=== PATIENT | female | born 1975 | race Caucasian/White ===

== ENCOUNTER 2023-03-12 14:40 | Inpatient (IN) | payer BC ==
--- NOTE | 2023-03-12 15:16 | ED ---
General Adult HPI - General Chief complaint: Recheck/Abnormal Lab/Rx Stated complaint: abn labs Time Seen by Provider: 03/12/23 14:45 Source: patient, RN notes reviewed, old records reviewed Mode of arrival: EMS Limitations: no limitations - History of Present Illness Initial comments: This is a 47-year-old female has a long-standing history of hypokalemia. Patient states she takes potassium on a daily basis but went into the hospital because her potassium was 1.4. Patient states she's been 20 hours of the hospital and they were given oral and IV potassium but they could not get the potassium to stay elevated and they remained in the twos so they sent her to our hospital to be evaluated and see Dr. Godwin who she sees. Patient denies any palpitations. Patient denies any joint patientdenies any chest pain patient denies difficulty breathing. Patient is any fever chills or cough per patient as any kidney history. Also patient is not taking any medications besides potassium - Related Data Allergies Allergy/AdvReac Type Severity Reaction Status Date / Time No Known Allergies Allergy Verified 03/12/23 14:57 Review of Systems ROS Statement: Those systems with pertinent positive or pertinent negative responses have been documented in the HPI. ROS Other: All systems not noted in ROS Statement are negative. Past Medical History Additional Past Medical History / Comment(s): helolytic anemia, low k+ History of Any Multi-Drug Resistant Organisms: None Reported Additional Past Surgical History / Comment(s): D&C, gallbladder, ablasion Past Psychological History: Unable to Obtain Smoking Status: Never smoker Past Alcohol Use History: Occasional Past Drug Use History: None Reported General Exam - General Exam Comments Initial Comments: GENERAL: Patient is well-developed and well-nourished. Patient is nontoxic and well- hydrated and is in no acute distress. ENT: Neck is soft and supple. No significant lymphadenopathy is noted. Oropharynx is clear. Moist mucous membranes. Neck has full range of motion without eliciting any pain. EYES: The sclera were anicteric and conjunctiva were pink and moist. Extraocular movements were intact and pupils were equal round and reactive to light. Eyelids were unremarkable. PULMONARY: Unlabored respirations. Good breath sounds bilaterally. No audible rales rhonchi or wheezing was noted. CARDIOVASCULAR: There is a regular rate and rhythm without any murmurs gallops or rubs. ABDOMEN: Soft and nontender with normal bowel sounds. No palpable organomegaly was noted. There is no palpable pulsatile mass. SKIN: Skin is clear with no lesions or rashes and otherwise unremarkable. NEUROLOGIC: Patient is alert and oriented x3. Cranial nerves II through XII are grossly intact. Motor and sensory are also intact. Normal speech, volume and content. Symmetrical smile. MUSCULOSKELETAL: Normal extremities with adequate strength and full range of motion. No lower extremity swelling or edema. No calf tenderness. LYMPHATICS: No significant lymphadenopathy is noted PSYCHIATRIC: Normal psychiatric evaluation. Limitations: no limitations Course Vital Signs 03/12/23 14:42 Temperature 98.6 F Pulse Rate 54 L Respiratory 18 Rate Blood Pressure 104/64 O2 Sat by Pulse 100 Oximetry Medical Decision Making - Medical Decision Making EKG was interpreted by myself. EKG shows a sinus bradycardia 55 bpm RI interval is 203 QRSs are 110 QT interval is 489 QTC is 477. Patient's EKG shows no ST segment elevation or depression. Was pt. sent in by a medical professional or institution (, PA, SENIOR NURSE MANAGER, urgent care, hospital, or retirement...) When possible be specific @ -Patient was sent in from another hospital. Hospital was [facility] Did you speak to anyone other than the patient for history (EMS, parent, family, police, friend...)? What history was obtained from this source @ -No Did you review nursing and triage notes (agree or disagree)? Why? @ -I reviewed and agree with nursing and triage notes Were old charts reviewed (outside hosp., previous admission, EMS record, old EKG, old radiological studies, urgent care reports/EKG's, retirement records)? Report findings @ -I reviewed all charts and lab work that was sent with the patient from the other facility Differential Diagnosis (chest pain, altered mental status, abdominal pain women, abdominal pain men, vaginal bleeding, weakness, fever, dyspnea, syncope, headache, dizziness, GI bleed, back pain, seizure, CVA, palpatations, mental health, musculoskeletal)? @ -not applicable EKG interpreted by me (3pts min.). @ -As above X-rays interpreted by me (1pt min.). @ -None done CT interpreted by me (1pt min.). @ -None done U/S interpreted by me (1pt. min.). @ -None done What testing was considered but not performed or refused? (CT, X-rays, U/S, labs)? Why? @ -None What meds were considered but not given or refused? Why? @ -None Did you discuss the management of the patient with other professionals (professionals i.e. , PA, SENIOR NURSE MANAGER, lab, RT, psych nurse, high school social science teacher, optics technical officer, teacher, morals squad police officer, porter sample case)? Give summary @ -No Was smoking cessation discussed for >3mins.? @ -No Was critical care preformed (if so, how long)? @ -No Were there social determinants of health that impacted care today? How? (Home lessness, low income, unemployed, alcoholism, drug addiction, transportation, low edu. Level, literacy, decrease access to med. care, senior care, rehab)? @ -No Was there de-escalation of care discussed even if they declined (Discuss DNR or withdrawal of care, Hospice)? DNR status @ -No What co-morbidities impacted this encounter? (DM, HTN, Smoking, COPD, CAD, Cancer, CVA, ARF, Chemo, Hep., AIDS, mental health diagnosis, sleep apnea, morbid obesity)? @ -None Was patient admitted / discharged? Hospital course, mention meds given and route, prescriptions, significant lab abnormalities, going to OR and other pertinent info. @ -Had blood redrawn here at our facility I spoke with Dr. Barillas he agreed to admit the patient admitted the patient wrote admitting orders Undiagnosed new problem with uncertain prognosis? @ -No Drug Therapy requiring intensive monitoring for toxicity (Heparin, Nitro, Insulin, Cardizem)? @ -No Were any procedures done? @ -No Diagnosis/symptom? @ -Hypokalemia Acute, or Chronic, or Acute on Chronic? @ -Acute on chronic Uncomplicated (without systemic symptoms) or Complicated (systemic symptoms)? @ -Complicated Side effects of treatment? @ -No Exacerbation, Progression, or Severe Exacerbation? @ -No Poses a threat to life or bodily function? How? (Chest pain, [place], [place], pneumonia, PE, COPD, DKA, ARF, appy, cholecystitis, CVA, Diverticulitis, Homicidal, Suicidal, threat to staff... and all critical care pts) @ -No Disposition Clinical Impression: Hypokalemia Disposition: ADMITTED IP TO THIS HOSP Referrals: Maximilian Mcleod MD [Primary Care Provider] - 1-2 days Time of Disposition: 15:16
[2023-03-12] MEDS ORDERED: Potassium Replacement Protocol 1 EACH MISC MISCELLANE PRN (15:17)
[2023-03-12] MEDS ORDERED: POTASSIUM CHLORIDE ER 20 MEQ TAB.ER PO ONE (15:17)
[2023-03-12] MEDS: POTASSIUM CHLORIDE 10 MEQ in WATER FOR INJECTION 1 100ML.BAG IVPB SCH ×2 (15:54→16:52)
[2023-03-12 16:04] LABS: Basophils % (A) 0 %; Eosinophils # (A) 0.1 k/uL (0-0.7); Eosinophils % (A) 2 %; HCT 38.7 % (34.0-46.0); HGB 13.3 gm/dL (11.4-16.0); Lymphocytes # (A) 1.8 k/uL (1.0-4.8); Lymphocytes % (A) 38 %; MCH 31.8 pg (25.0-35.0); MCHC 34.3 g/dL (31.0-37.0); MCV 92.7 fL (80.0-100.0); Mean Platelet Volume 7.1; Monocytes # (A) 0.2 k/uL (0-1.0); Monocytes % (A) 4 %; Neutrophils # (A) 2.6 k/uL (1.3-7.7); Neutrophils % (A) 53 %; Platelet Count 206 k/uL (150-450); RBC 4.18 m/uL (3.80-5.40); RDW 14.2 % (11.5-15.5); WBC 4.8 k/uL (3.8-10.6)
[2023-03-12 16:18] LABS: ALT 15 U/L (4-34); AST 21 U/L (14-36); African American GFR (CKD) 75 (>60 ml/min/1.73 sqM); Albumin 2.9 g/dL (3.5-5.0); Alkaline Phosphatase 46 U/L (38-126); Anion Gap 6 mmol/L; Blood Urea Nitrogen 17 mg/dL (7-17); Calcium 6.9 mg/dL (8.4-10.2); Carbon Dioxide 25 mmol/L (22-30); Chloride 107 mmol/L (98-107); Glucose 79 mg/dL (74-99); Non-African American GFR(CKD) 65 (>60 ml/min/1.73 sqM); Sodium 138 mmol/L (137-145); Total Bilirubin 0.6 mg/dL (0.2-1.3)
[2023-03-12 16:22] LABS: Potassium 1.9 mmol/L (3.5-5.1)
[2023-03-12] MEDS: ENOXAPARIN 40 MG/0.4 ML SYRINGE SQ SCH (17:35)
[2023-03-12] MEDS: POTASSIUM CHLORIDE ER 20 MEQ TAB.ER PO SCH ×3 (18:10→22:02)
--- NOTE | 2023-03-12 18:49 | P.HPIM ---
History of Present Illness H&P Date: 03/12/23 Chief Complaint: Low potassium This is a pleasant 47-year-old patient follows Dr. Mcleod. 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 No cause was determined. This has been in remission. But she follows up biannually. Patient also developed potassium for many years. Has extensive workup done in the past. No cause was found. Patient had an appointment to see Dr. Godwin yesterday. They did she was called at home that her potassium was 1.4. She went on to [place]. Recheck potassium was 2.0. Patient is given more potassium and send him to the ER. Patient started IV potassium and ear. Also on oral potassium. Denies any palpitation chest pain muscle weakness. at the bedside. She does not follow with nephrology currently. Has done so in the past. Review of systems: GEN.: Tired EYES: None HEENT: None NECK: None RESPIRATORY: None CARDIOVASCULAR: None GASTROINTESTINAL: Chronic intermittent diarrhea. Averages 1-3 BMs a day. GENITOURINARY: None MUSCULOSKELETAL: None LYMPHATICS: None HEMATOLOGICAL: None PSYCHIATRY: None NEUROLOGICAL: None Past medical history to include: Hemolytic anemia, cause unknown. Persistent hypokalemia. Social history: No smoking. Alcohol occasionally. . Does special ed Physical examination: VITAL SIGNS: 98.6, 54, 18, 104/64, 100% room air GENERAL: BMI 20.8, declining but awake a bit tired. EYES: Pupils equal. Conjunctiva normal. HEENT: External appearance of nose and ears normal, oral cavity grossly normal. NECK: JVD not raised; masses not palpable. HEART: First and second heart sounds are normal; no edema. LUNGS: Respiratory rate normal; clear to auscultation. ABDOMEN: Soft, nontender, liver spleen not palpable, no masses palpable. PSYCH: Alert and oriented x3; mood and affect normal. MUSCULOSKELETAL:No Clubbing/cyanosis;muscles-grossly intact NEUROLOGICAL: Cranial nerves grossly intact; no facial asymmetry, power and sensation grossly intact. LYMPHATICS: No lymph nodes palpable in the axilla and neck INVESTIGATIONS, reviewed in the clinical context: White count 4.18 globin 13.3 platelets 206 sodium 138 potassium 1.9 creatinine 1.04 magnesia 2.0. Albumin 2.9 EKG tracing personally reviewed by ri-heart rate 55. Prolonged QT. Assessment plan: -Severe persistent hypokalemia, acute on chronic. Patient has extensive workup in the past. Cause unknown. Replace potassium aggressively. -Hypoalbuminemia. Cause unknown. -Prolonged QT interval likely from hypokalemia. Telemetry Discussed with patient. We will consult nephrology that patient can follow-up with the same. Potassium being replaced tonight. Check again in the morning. Discussed with patient has been out of the bedside. Past Medical History Additional Past Medical History / Comment(s): helolytic anemia, low k+ History of Any Multi-Drug Resistant Organisms: None Reported Additional Past Surgical History / Comment(s): D&C, gallbladder, ablasion Past Psychological History: Unable to Obtain Smoking Status: Never smoker Past Alcohol Use History: Occasional Past Drug Use History: None Reported Medications and Allergies Home Medications Medication Instructions Recorded Confirmed Type Potassium(Otc) 1 tab PO DAILY 03/12/23 03/12/23 History Allergies Allergy/AdvReac Type Severity Reaction Status Date / Time No Known Allergies Allergy Verified 03/12/23 16:00 Physical Exam Vitals: Vital Signs Temp Pulse Resp BP Pulse Ox 03/12/23 14:42 98.6 F 54 L 18 104/64 100 Intake and Output 03/12/23 03/12/23 03/12/23 06:59 14:59 22:59 Other: Weight 58.513 kg Results CBC & Chem 7: 03/12/23 15:45 03/12/23 15:45 Labs: Abnormal Lab Results - Last 24 Hours (Table) 03/12/23 Range/Units 15:45 Potassium 1.9 L* (3.5-5.1) mmol/L Calcium 6.9 L (8.4-10.2) mg/dL Total Protein 5.0 L (6.3-8.2) g/dL Albumin 2.9 L (3.5-5.0) g/dL
[2023-03-12] MEDS ORDERED: ACETAMINOPHEN TAB 325 MG TAB PO PRN (19:00)
[2023-03-12] MEDS: MAGNESIUM OXIDE 400 MG TAB PO SCH (20:29)
[2023-03-13 08:44] VITALS: BP 94/57; PULSE 81; RESP 18; TEMP 98.1
[2023-03-13] MEDS: ENOXAPARIN 40 MG/0.4 ML SYRINGE SQ SCH (08:48)
[2023-03-13] MEDS: MAGNESIUM OXIDE 400 MG TAB PO SCH (08:49)
[2023-03-13] MEDS ORDERED: POTASSIUM CHLORIDE ER 20 MEQ TAB.ER PO SCH (09:00)
--- NOTE | 2023-03-13 11:21 | P.NPCON ---
History of Present Illness - Reason for Consult hypokalemia - History of Present Illness Patient is a 47-year-old female with history of chronic hypokalemia for about 17 years. Patient also has underlying history of hemolytic anemia for which she has had treatment with Rituxan many years ago. Patient states that her serum potassium is usually in the mid 2 range. She was seen at the iv therapy nurse's office and serum potassium was 1.7 therefore patient was advised to go to the hospital. She does have complaints of weakness and some muscle cramps. Patient reports chronic diarrhea on and off for many years with negative colonoscopies previously. She has been tested for underlying autoimmune etiologies. Workup has been negative per patient. The diarrhea does get worse with increasing stress. Patient denies use of any diuretics No history of intake of excessive amounts of licorice No history of hypertension. Blood pressure actually runs low. 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 She is quite active. Patient states that she takes extra potassium tablets if she is feeling weak but does not regularly get her blood checked. No history of EtOH abuse Review of Systems As per HPI Past Medical History Additional Past Medical History / Comment(s): helolytic anemia, low k+ History of Any Multi-Drug Resistant Organisms: None Reported Additional Past Surgical History / Comment(s): D&C, gallbladder, ablasion Past Psychological History: Unable to Obtain Smoking Status: Never smoker Past Alcohol Use History: Occasional Past Drug Use History: None Reported Medications and Allergies Home Medications Medication Instructions Recorded Confirmed Type Potassium(Otc) 1 tab PO DAILY 03/12/23 03/12/23 History Allergies Allergy/AdvReac Type Severity Reaction Status Date / Time No Known Allergies Allergy Verified 03/12/23 16:00 Physical Exam Vitals: Vital Signs Temp Pulse Pulse Resp BP BP Pulse Ox 03/13/23 08:00 98.1 F 81 18 94/57 99 03/13/23 07:56 51 L 03/13/23 04:00 98.2 F 51 L 16 93/52 99 03/13/23 02:00 68 14 03/13/23 00:00 68 14 95/54 96 03/12/23 20:00 97.4 F L 58 L 16 91/54 100 03/12/23 17:30 97.9 F 52 L 14 99/66 100 03/12/23 17:00 58 L 16 101/61 98 03/12/23 14:42 98.6 F 54 L 18 104/64 100 Intake and Output 03/12/23 03/13/23 03/13/23 22:59 06:59 14:59 Intake Total 540 540 Balance 540 540 Intake: Oral 540 540 Other: Voiding Method Toilet Toilet # Voids 2 Weight 58.513 kg Patient is awake, comfortable, no acute distress Examination of the heart S1 and S2 Examination of the lungs bilateral breath sounds are heard Abdomen is soft nontender Examination of the lower extremities shows no significant edema COMPUTATIONAL GENETICIST exam grossly intact Results - Lab Results Most recent lab results Calcium 6.9 mg/dL (8.4-10.2) L 03/12/23 15:45 Magnesium 2.0 mg/dL (1.6-2.3) 03/12/23 15:45 03/12/23 15:45 03/12/23 15:45 Assessment and Plan Assessment: 1. Hypokalemia with history of chronic hypokalemia for 17-18 years. Underlying history of diarrhea as well. No history of hypertension. Rule out renal wasting of potassium versus hypokalemia from extrarenal loss like diarrhea. 2. History of hemolytic anemia with previous treatment with Rituxan many years ago. Current hemoglobin 13.3. Patient has not required packed RBCs transfusion for many years. She follows with hematology regularly. 3. Chronic diarrhea with negative colonoscopies and previous negative workup for autoimmune etiologies. Patient reports that diarrhea worsens with increasing stress levels. Plan: Check random urine potassium Check TSH Add Aldactone Replace potassium aggressively Follow-up as outpatient and we will consider genetic testing to rule out underlying potassium wasting nephropathy if random urine potassium is elevated. Thank you for the consultation. We will continue to follow the patient with you during her hospitalization.
[2023-03-13] MEDS ORDERED: SPIRONOLACTONE 25 MG TAB PO SCH (11:30)
[2023-03-13 11:42] LABS: African American GFR (CKD) 67 (>60 ml/min/1.73 sqM); Anion Gap 7 mmol/L; Blood Urea Nitrogen 12 mg/dL (7-17); Calcium 7.4 mg/dL (8.4-10.2); Carbon Dioxide 22 mmol/L (22-30); Chloride 109 mmol/L (98-107); Glucose 75 mg/dL (74-99); Magnesium 2.3 mg/dL (1.6-2.3); Non-African American GFR(CKD) 58 (>60 ml/min/1.73 sqM); Potassium 3.2 mmol/L (3.5-5.1); Sodium 138 mmol/L (137-145)
--- NOTE | 2023-03-13 14:26 | P.DS ---
Providers Date of admission: 03/12/23 15:18 Expected date of discharge: 03/13/23 Attending physician: Rodrigo Barillas Consults: 03/12/23 15:16 Consult Physician Urgent Consulting Provider: Alec Godwin Consult Reason/Comments: Hypokalemia Do you want consulting provider notified?: Yes 03/12/23 17:23 Consult Physician Routine Consulting Provider: Morena Banks Consult Reason/Comments: Severe hypokalemia chronic Do you want consulting provider notified?: Yes Primary care physician: [facility] Course: Chief Complaint: Low potassium This is a pleasant 47-year-old patient follows Dr. Mcleod. 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 No cause was determined. This has been in remission. But she follows up biannually. Patient also developed potassium for many years. Has extensive workup done in the past. No cause was found. Patient had an appointment to see Dr. Godwin yesterday. They did she was called at home that her potassium was 1.4. She went on to [place]. Recheck potassium was 2.0. Patient is given more potassium and send him to the ER. Patient started IV potassium and ear. Also on oral potassium. Denies any palpitation chest pain muscle weakness. at the bedside. She does not follow with nephrology currently. Has done so in the past. March 13: Patient's potassium is come back to 3.2. Patient be discharged on potassium 40 every daily. Prior to this patient is taking [id number] potassium. She'll follow-up with nephrology. Discussed. Past medical history to include: Hemolytic anemia, cause unknown. Persistent hypokalemia. Social history: No smoking. Alcohol occasionally. . Does special ed Physical examination: VITAL SIGNS: 98.1, 81, 18, 94/57, 99% room air GENERAL: Comfortable EYES: Pupils equal. Conjunctiva normal. HEENT: External appearance of nose and ears normal, oral cavity grossly normal. NECK: JVD not raised; masses not palpable. HEART: First and second heart sounds are normal; no edema. LUNGS: Respiratory rate normal; clear to auscultation. ABDOMEN: Soft, nontender, liver spleen not palpable, no masses palpable. PSYCH: Alert and oriented x3; mood and affect normal. MUSCULOSKELETAL:No Clubbing/cyanosis;muscles-grossly intact INVESTIGATIONS, reviewed in the clinical context: March 13: Potassium 3.2 creatinine 1.14 TSH 2.19 White count 4.18 globin 13.3 platelets 206 sodium 138 potassium 1.9 creatinine 1.04 magnesia 2.0. Albumin 2.9 EKG tracing personally reviewed by me-heart rate 55. Prolonged QT. Assessment plan: -Severe persistent hypokalemia, acute on chronic. Patient has extensive workup in the past. Cause unknown. Replace potassium aggressively. -Hypoalbuminemia. Cause unknown. -Prolonged QT interval likely from hypokalemia. Telemetry Disposition: Home Plan - Discharge Summary Discharge Rx Participant: No New Discharge Prescriptions: New Potassium Chloride ER [K-Dur 20] 40 meq PO DAILY #30 tab Magnesium Oxide [Mag-Ox] 400 mg PO DAILY #30 tab Discontinued Potassium(Otc) 1 tab PO DAILY Discharge Medication List Magnesium Oxide [Mag-Ox] 400 mg PO DAILY #30 tab 03/13/23 [Rx] Potassium Chloride ER [K-Dur 20] 40 meq PO DAILY #30 tab 03/13/23 [Rx] Follow up Appointment(s)/Referral(s): Morena Banks MD [STAFF PHYSICIAN] - 1 Week Carly Degroot NPC [REFERRING] - 03/18/23 11:00 am (Saturday) Alfredo Ryan MD [STAFF PHYSICIAN] - 1 Week (Pt to make follow up) Patient Instructions/Handouts: Hypokalemia (DC) Activity/Diet/Wound Care/Special Instructions: dc after K lab is back from this am Discharge Disposition: HOME SELF-CARE
--- NOTE | 2023-03-13 17:36 | P.CONS ---
History of Present Illness - Reason for Consult Consult date: 03/13/23 Hypokalemia, h/o hemolytic anemia - History of Present Illness The patient is a 47-year-old white female, well-known to myself. He has been on regular follow-up for several years. The patient was sent in as she was found to have a very low potassium, less than 2. She was initially in the emergency room and had aggressive potassium supplementation, with repeat again showing low level of 1.7. She was therefore admitted for further management. The patient has a history of marked hypokalemia of unknown cause, with baseline potassium typically around 2-2.5. She has no symptoms at this level. The above labs were done at the time of for regular office visit on 03/11/23. She reported no new symptoms at the time either. 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 She responded well to IVIG and steroids.She was retreated with Rituxan for relapse in sep 2008 to Oct 2008, with remission. Extensive w/u with Ct scans , labs and bone marrow revealed no underlying cause. She also has a history of hypokalemia and diarrhea, of unkown cause. 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 She was placed on Aldactone by her PCP in 04/20, but stopped it in mid 2015. She has been running regularly. She is eating normally. Her weight has been stable. Her diarrhea is overall unchanged, and varies with her diet. She takes K+ regularly, with increased quantities, based on her symptoms. she did not follow-up in the office between 10/28, and 03/29. she was referred to nephrology in 10/26 because of increase in her creatinine. The patient states that the preliminary testing including ultrasound, and 24- hour urine were normal. She did not keep that appointment due to subsequent lockdown from the coronavirus epidemic. Cr was back to 1.1 in 05/26. it did show slow increase, up to 1.3-1.4 by early 2021. The patient at that time had revealed that she was drinking very large amounts of Mountain Dew. She was asked to decrease the same, and stated that she has done so by more than 50%, when seen at her last office visit on 03/11/23 Review of Systems Constitutional: Denies chills, Denies fever Eyes: denies blurred vision, denies pain Ears, nose, mouth and throat: Denies headache, Denies sore throat Cardiovascular: Denies chest pain, Denies shortness of breath Respiratory: Denies cough Gastrointestinal: Reports diarrhea Genitourinary: Denies dysuria, Denies hematuria Musculoskeletal: Denies myalgias Integumentary: Denies pruritus, Denies rash Neurological: Denies numbness, Denies weakness Psychiatric: Denies anxiety, Denies depression Endocrine: Denies fatigue, Denies weight change Hematologic/Lymphatic: Reports as per HPI Past Medical History Additional Past Medical History / Comment(s): helolytic anemia, low k+ History of Any Multi-Drug Resistant Organisms: None Reported Additional Past Surgical History / Comment(s): D&C, gallbladder, ablasion Past Psychological History: Unable to Obtain Smoking Status: Never smoker Past Alcohol Use History: Occasional Past Drug Use History: None Reported Medications and Allergies Home Medications Medication Instructions Recorded Confirmed Type Magnesium Oxide [Mag-Ox] 400 mg PO DAILY #30 tab 03/13/23 Rx Potassium Chloride ER [K-Dur 20] 40 meq PO DAILY #30 tab 03/13/23 Rx Allergies Allergy/AdvReac Type Severity Reaction Status Date / Time No Known Allergies Allergy Verified 03/12/23 16:00 Physical Exam Vitals: Vital Signs Temp Pulse Resp BP Pulse Ox 03/13/23 08:00 98.1 F 81 18 94/57 99 03/13/23 07:56 51 L 03/13/23 04:00 98.2 F 51 L 16 93/52 99 03/13/23 02:00 68 14 03/13/23 00:00 68 14 95/54 96 03/12/23 20:00 97.4 F L 58 L 16 91/54 100 03/12/23 17:30 97.9 F 52 L 14 99/66 100 Intake and Output 03/13/23 03/13/23 03/13/23 06:59 14:59 22:59 Intake Total 540 Balance 540 Intake: Oral 540 Other: Voiding Method Toilet # Voids 2 - Constitutional General appearance: no acute distress - EENT Eyes: EOMI, PERRLA ENT: hearing grossly normal, normal oropharynx - Neck Neck: no lymphadenopathy Thyroid: bilateral: normal size - Respiratory Respiratory: bilateral: CTA - Cardiovascular Rhythm: regular Heart sounds: normal: S1, S2 - Gastrointestinal General gastrointestinal: normal bowel sounds, soft - Integumentary Integumentary: normal - Neurologic Neurologic: CNII-XII intact - Musculoskeletal Musculoskeletal: strength equal bilaterally - Psychiatric Psychiatric: A&O x's 3, appropriate affect Results CBC & Chem 7: 03/12/23 15:45 03/13/23 09:14 Labs: Abnormal Lab Results - Last 24 Hours (Table) 03/13/23 Range/Units 09:14 Potassium 3.2 L (3.5-5.1) mmol/L Chloride 109 H (98-107) mmol/L Creatinine 1.14 H (0.52-1.04) mg/dL Calcium 7.4 L (8.4-10.2) mg/dL Comments: EKG imaging reviewed. Increased QT interval and sinus bradycardia Assessment and Plan (1) Hypokalemia Narrative/Plan: The patient has marked hypokalemia chronically, of undetermined cause. She had been seen for the same by nephrology several years ago, with no no definite diagnosis made. I do not believe that she followed up fully at the time. He was also given Aldactone by her PCP but stopped it after some time. Her baseline potassium is typically in the 2-2.5 range. She has no symptoms whatsoever at this level, and is very active. She takes a potassium supplement regularly, and increases the dose herself transiently if she feels that her levels are lower than her baseline. - She was admitted because of the potassium being lower than her baseline, in the high 1 range. She was still not symptomatic in any way. - The case was discussed in detail with nephrology. The patient does have chronic diarrhea, also of unknown causes. In addition she was taking large amounts of caffeine containing beverage for a prolonged period of time. Nephrology will evaluate her further with appropriate recommendations. - Patient is okay to discharge from our standpoint if her follow-up potassium for additional supplementation comes back greater than 2. Status: Acute Code(s): E87.6 - HYPOKALEMIA SNOMED Code(s): 34057096 (2) Hemolytic anemia Narrative/Plan: Diagnostic and therapeutic circumstances as described. The patient has been in remission for many years and is on regular follow-up without evidence of recurrence. Her hemoglobin was normal, with hemolytic markers also not showing any significant anomaly on labs done on the day of admission in the office. She will continue follow-up as an outpatient Status: Acute Code(s): D58.9 - HEREDITARY HEMOLYTIC ANEMIA, UNSPECIFIED SNOMED Code(s): 19516886
[2023-03-14] MEDS ORDERED: SPIRONOLACTONE 25 MG TAB PO SCH (11:30)
== END 2023-03-13 12:10 | disposition home or self-care (01) | DRG 641 ==
LOC: SUPCPDRO 14:40 → EC 14:40 → 3SCARD 15:18
PROVIDERS: ADMIT Hospitalist; ATTEND Hospitalist
DX: E87.6 Hypokalemia (principal); D58.9 Hereditary hemolytic anemia, unspecified; K52.9 Noninfective gastroenteritis and colitis, unspecified; R94.31 Abnormal electrocardiogram [ECG] [EKG]; E88.09 Other disorders of plasma-protein metabolism, not elsewhere classified
CPT/HCPCS: 36415; 80048; 80053; 83735; 84443; 85025; 93005; 96365; 96366; 99285

== ENCOUNTER 2024-05-05 23:44 | Observation (INO) | payer BC ==
--- NOTE | 2024-05-06 01:34 | ED ---
General Adult HPI - General Chief complaint: Arrhythmia/Palpitations Stated complaint: Bradycardia Time Seen by Provider: 05/06/24 00:01 Source: patient, EMS Mode of arrival: EMS Limitations: no limitations - History of Present Illness Initial comments: Patient is a 49-year-old woman with history of chronic hypokalemia. States that on every Saturday she has her potassium checked and if it is less than 2 she goes to the hospital on Saturday to have a potassium infusion. The patient had gone to the hospital today to receive potassium infusion and she states when they went to discharge her her heart rate was low in the 20s and there were irregularities and they transferred her here to have cardiology consultation. The patient states that she was aware of some fluttering sensations in the chest. She did not have chest pain, dyspnea, diaphoresis, nausea or vomiting. The patient states she feels more or less at her baseline now -: hour(s) Severity scale (1-10): 0 Consistency: now resolved Improves with: none Worsens with: none Treatments Prior to Arrival: none - Related Data Previous Rx's Medication Instructions Recorded Magnesium Oxide [Mag-Ox] 400 mg PO DAILY #30 tab 03/13/23 Potassium Chloride ER [K-Dur 20] 40 meq PO DAILY #30 tab 03/13/23 Allergies Allergy/AdvReac Type Severity Reaction Status Date / Time No Known Allergies Allergy Verified 03/12/23 16:00 Review of Systems ROS Statement: Those systems with pertinent positive or pertinent negative responses have been documented in the HPI. ROS Other: All systems not noted in ROS Statement are negative. Constitutional: Denies: fever, chills Respiratory: Denies: cough, dyspnea Cardiovascular: Reports: palpitations. Denies: chest pain, syncope Gastrointestinal: Denies: abdominal pain, nausea, vomiting Genitourinary: Denies: dysuria, hematuria Musculoskeletal: Denies: back pain Skin: Denies: rash Neurological: Denies: headache, weakness Past Medical History Additional Past Medical History / Comment(s): hemoolytic anemia, low k+ History of Any Multi-Drug Resistant Organisms: None Reported Additional Past Surgical History / Comment(s): D&C, gallbladder, ablasion Past Psychological History: Unable to Obtain Smoking Status: Never smoker Past Alcohol Use History: Occasional Past Drug Use History: None Reported General Exam Limitations: no limitations General appearance: alert, in no apparent distress Head exam: Present: atraumatic, normocephalic Eye exam: Present: normal appearance. Absent: scleral icterus, conjunctival injection Neck exam: Present: normal inspection Respiratory exam: Present: normal lung sounds bilaterally. Absent: respiratory distress, wheezes, rales, rhonchi, stridor, accessory muscle use Cardiovascular Exam: Present: normal rhythm, bradycardia (56 at my exam), normal heart sounds. Absent: systolic murmur, diastolic murmur, rubs, gallop GI/Abdominal exam: Present: soft. Absent: distended, tenderness, guarding, rebound, rigid, mass Extremities exam: Present: normal inspection, normal capillary refill. Absent: pedal edema, calf tenderness Back exam: Present: normal inspection. Absent: CVA tenderness (R), CVA tenderness (L) Neurological exam: Present: alert Skin exam: Present: warm, dry, intact, normal color. Absent: rash Course Vital Signs 05/05/24 05/06/24 23:53 00:07 Temperature 98.1 F Pulse Rate 54 L Pulse Rate [ 55 L Charge Rn ] Respiratory 18 Rate Blood Pressure 107/64 O2 Sat by Pulse 98 Oximetry EKG Findings - EKG Results: EKG: interpreted by ERMD, sinus rhythm (Rate 54 bpm), normal axis - Blocks, [place], Hypertrophy, ST Abn: AV and intraventricular conduction: right bundle branch block (fixed/intermittent, complete/incomplete) (Incomplete) Repolarization changes or abnormalities: Q-T interval prolongation Disposition Referrals: Maximilian Mcleod MD [Primary Care Provider] - 1-2 days
[2024-05-06 01:47] LABS: Basophils % (A) 1 %; Eosinophils # (A) 0.2 k/uL (0-0.7); Eosinophils % (A) 3 %; HCT 37.9 % (34.0-46.0); HGB 12.8 gm/dL (11.4-16.0); Lymphocytes # (A) 2.2 k/uL (1.0-4.8); Lymphocytes % (A) 44 %; MCHC 33.7 g/dL (31.0-37.0); MCV 91.9 fL (80.0-100.0); Mean Platelet Volume 7.5; Monocytes # (A) 0.2 k/uL (0-1.0); Monocytes % (A) 5 %; Neutrophils # (A) 2.3 k/uL (1.3-7.7); Neutrophils % (A) 45 %; Platelet Count 270 k/uL (150-450); Poikilocytosis Slight; RBC 4.12 m/uL (3.80-5.40); RDW 14.4 % (11.5-15.5); WBC 5.1 k/uL (3.8-10.6)
[2024-05-06 02:01] LABS: ALT 13 U/L (4-34); AST 24 U/L (14-36); African American GFR (CKD) 55 (>60 ml/min/1.73 sqM); Albumin 3.1 g/dL (3.5-5.0); Alkaline Phosphatase 47 U/L (38-126); Anion Gap 6 mmol/L; Blood Urea Nitrogen 16 mg/dL (7-17); Calcium 7.5 mg/dL (8.4-10.2); Carbon Dioxide 18 mmol/L (22-30); Chloride 113 mmol/L (98-107); Glucose 80 mg/dL (74-99); Magnesium 1.8 mg/dL (1.6-2.3); Non-African American GFR(CKD) 48 (>60 ml/min/1.73 sqM); Sodium 137 mmol/L (137-145); Total Bilirubin 0.6 mg/dL (0.2-1.3); Total Protein 5.1 g/dL (6.3-8.2)
[2024-05-06 02:03] LABS: INR 1.1 (<1.2); Partial Thromboplastin Time 24.1 sec (22.0-30.0); Prothrombin Time 11.4 sec (10.0-12.5)
[2024-05-06 03:15] LABS: Potassium 2.4 mmol/L (3.5-5.1)
[2024-05-06] MEDS ORDERED: NALOXONE 0.4 MG/ML 1 ML VIAL IV PRN (03:33)
[2024-05-06] MEDS: SODIUM CHLORIDE 0.9% 1,000 ML IV SCH (03:47)
[2024-05-06 08:18] VITALS: TEMP 97.7
[2024-05-06] MEDS: FAMOTIDINE 20 MG TAB PO SCH (08:21)
[2024-05-06] MEDS: POTASSIUM CHLORIDE ER 20 MEQ TAB.ER PO SCH ×3 (10:35→10:40)
[2024-05-06] MEDS: MAGNESIUM OXIDE 400 MG TAB PO SCH (10:36)
[2024-05-06] MEDS: ENOXAPARIN 40 MG/0.4 ML SYRINGE SQ SCH (10:36)
--- NOTE | 2024-05-06 13:43 | P.CRDCN ---
History of Present Illness Consult date: 05/06/24 History of present illness: HISTORY OF PRESENTING ILLNESS 89-year-old female with chronic hypokalemia, on 80 mg of potassium orally every day. She had a blood draw earlier this week when it was noticed that her potassium was low. For this she was sent for potassium infusion. During infusion it was noticed that her heart rate was low in 20s. There is also concern of some bigeminy and trigeminy. There were no telemetry rhythm strips to review that are available. Patient's admitting ECG shows normal sinus bradycardia with no significant ST-T wave changes. Patient's current telemetry shows sinus bradycardia with heart rate 57 bpm. Patient reported that she is athletic and runs every day. She denies any symptoms of chest pain chest pressure palpitations lightheadedness or dizziness during her running and while she has been physically active. She has not had any of the symptoms during her resting state. Her labs shows sodium 137, potassium 2.4, chloride 113, BUN 16, creatinine 1.3. Troponin was negative. Low protein and low albumin. REVIEW OF SYSTEMS 14 point review of system is negative except what is mentioned above in HPI. PHYSICAL EXAMINATION Vital signs reviewed. Head: Normocephalic. Eyes: Sclerae nonicteric. Neck: Brisk carotid upstroke, no jugular venous distention. Lungs: Clear to auscultation. Heart: Regular rate and rhythm, S1-S2, no S3, no murmur or rub. Abdomen: Soft nontender, positive bowel sounds. Extremities: No edema, intact distal pulses. Neuro: Alert, oritented, no focal deficits. Detailed neuro exam was not performed. ASSESSMENT Sinus bradycardia, likely physiological from being athletic Episode of bradycardia and ectopic ventricular beats from hypokalemia. Severe hypokalemia, which is chronic. 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 She is on 80 mEq of oral potassium supplements every day. PLAN No reported symptoms of chest pain chest pressure or shortness of breath. No concerns of acute coronary syndrome or congestive heart failure. No episodes of sustained arrhythmia on telemetry Plan for a 7-day event monitor to go home with. Patient is otherwise cleared to be discharged from cardiovascular standpoint. I recommend outpatient follow-up to go over the event monitor results. Will also consider obtaining an outpatient echocardiogram. Anurag De Jesus MD, FACC, RPVI Thank you for allowing [facility] to participate in thi s patient's care. Feel free to reach out in case of any followup questions. Past Medical History Additional Past Medical History / Comment(s): hemoolytic anemia, low k+ History of Any Multi-Drug Resistant Organisms: None Reported Additional Past Surgical History / Comment(s): D&C, gallbladder, ablasion Past Psychological History: Unable to Obtain Smoking Status: Never smoker Past Alcohol Use History: Occasional Past Drug Use History: None Reported Medications and Allergies Home Medications Medication Instructions Recorded Confirmed Type Potassium Bicarbonate/Cit AC 25 meq PO DAILY 05/06/24 05/06/24 History [Klor-Con-Ef 25 Meq Tab Eff] Potassium Chloride ER [K-Dur 20] 40 meq PO QID 05/06/24 05/06/24 History Allergies Allergy/AdvReac Type Severity Reaction Status Date / Time No Known Allergies Allergy Verified 05/06/24 10:29 Physical Exam Vitals: Vital Signs Temp Pulse Pulse Resp BP Pulse Ox 05/06/24 08:18 46 L 05/06/24 08:16 97.7 F 46 L 14 100/62 99 05/06/24 06:45 46 L 16 93/56 99 05/06/24 03:38 48 L 18 100/63 100 05/06/24 00:07 55 L 05/05/24 23:53 98.1 F 54 L 18 107/64 98 Intake and Output 05/05/24 05/06/24 05/06/24 22:59 06:59 14:59 Other: Weight 56.699 kg Results 05/06/24 01:36 05/06/24 01:36 Cardiac Enzymes 05/06/24 05/06/24 Range/Units 01:36 01:36 AST 24 (14-36) U/L Troponin I <0.012 (0.000-0.034) ng/mL Coagulation 05/06/24 Range/Units 01:36 PT 11.4 (10.0-12.5) sec APTT 24.1 (22.0-30.0) sec CBC 05/06/24 Range/Units 01:36 WBC 5.1 (3.8-10.6) k/uL RBC 4.12 (3.80-5.40) m/uL Hgb 12.8 (11.4-16.0) gm/dL Hct 37.9 (34.0-46.0) % Plt Count 270 (150-450) k/uL Comprehensive Metabolic Panel 05/06/24 Range/Units 01:36 Sodium 137 (137-145) mmol/L Potassium 2.4 L* (3.5-5.1) mmol/L Chloride 113 H (98-107) mmol/L Carbon Dioxide 18 L (22-30) mmol/L BUN 16 (7-17) mg/dL Creatinine 1.32 H (0.52-1.04) mg/dL Glucose 80 (74-99) mg/dL Calcium 7.5 L (8.4-10.2) mg/dL AST 24 (14-36) U/L ALT 13 (4-34) U/L Alkaline Phosphatase 47 (38-126) U/L Total Protein 5.1 L (6.3-8.2) g/dL Albumin 3.1 L (3.5-5.0) g/dL Current Medications Generic Name Dose Route Start Last Admin Trade Name Freq PRN Reason Stop Dose Admin Enoxaparin Sodium 40 mg 05/06/24 10:15 05/06/24 10:36 Enoxaparin 40 Mg/0.4 Ml Syringe SQ 40 mg DAILY ABRAN Administration Famotidine 20 mg 05/07/24 09:00 Famotidine 20 Mg Tab PO DAILY ABRAN Sodium Chloride 1,000 mls @ 20 mls/hr 05/06/24 03:45 05/06/24 03:47 Saline 0.9% IV 20 mls/hr .Q24H ABRAN Administration Magnesium Sulfate/Dextrose 1 100 mls @ 100 mls/hr 05/06/24 14:00 gm/ IV Solution IVPB 05/06/24 15:59 Q1H ABRAN Magnesium Oxide 400 mg 05/06/24 10:00 05/06/24 10:36 Magnesium Oxide 400 Mg Tab PO 400 mg DAILY ABRAN Administration Naloxone HCl 0.2 mg 05/06/24 03:33 Naloxone 0.4 Mg/Ml 1 Ml Vial IV Q2M PRN Opioid Reversal Potassium Chloride 40 meq 05/06/24 10:00 05/06/24 12:38 Potassium Chloride Er 20 Meq Tab.Er PO 05/06/24 14:01 40 meq Q2HR ABRAN Administration Potassium Chloride 40 meq 05/07/24 10:00 05/06/24 10:35 Potassium Chloride Er 20 Meq Tab.Er PO 40 meq DAILY ABRAN Administration Intake and Output 05/05/24 05/06/24 05/06/24 22:59 06:59 14:59 Other: Weight 56.699 kg 05/06/24 01:36 05/06/24 01:36
[2024-05-06] MEDS: MAGNESIUM SULFATE-D5W PMX 1 GM in DEXTROSE/WATER 1 100ML.BAG IVPB SCH (14:18)
[2024-05-06 14:25] VITALS: RESP 16
--- NOTE | 2024-05-06 16:02 | P.HPIM ---
History of Present Illness H&P Date: 05/06/24 Chief Complaint: Low heart rate This is a pleasant 49-year-old patient follows Dr. Mcleod. 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 No cause was determined. - in remission. follows up biannually. Hypokalemia for many years. Has extensive workup done in the past. No cause was found. 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 Normally her potassium runs around 2.4. She sometimes gets potassium infusions. Yesterday she went for a potassium infusion. Got 80 mEq. When I was about to leave heart rate dropped to around 28-30. Also was noted to have bigeminy. She was moved here. Otherwise patient rather active. She jogs few miles few times a week. Does drink a lot of water. She sometimes does get tired. Patient's at the bedside in the ER. Review of systems: GEN.: None EYES: None HEENT: None NECK: None RESPIRATORY: None CARDIOVASCULAR: None GASTROINTESTINAL: Chronic intermittent diarrhea. Averages 1-3 BMs a day. GENITOURINARY: None MUSCULOSKELETAL: None LYMPHATICS: None HEMATOLOGICAL: None PSYCHIATRY: None NEUROLOGICAL: None Past medical history to include: Hemolytic anemia, cause unknown. Persistent hypokalemia. Social history: No smoking. Alcohol occasionally. . Does special ed Physical examination: VITAL SIGNS: 97.7, 46, 14, 100/62, 99% room air GENERAL: BMI 20.2, reclining bed, awake, comfortable EYES: Pupils equal. Conjunctiva normal. HEENT: External appearance of nose and ears normal, oral cavity grossly normal. NECK: JVD not raised; masses not palpable. HEART: First and second heart sounds are normal; no edema. LUNGS: Respiratory rate normal; clear to auscultation. ABDOMEN: Soft, nontender, liver spleen not palpable, no masses palpable. PSYCH: Alert and oriented x3; mood and affect normal. MUSCULOSKELETAL:No Clubbing/cyanosis;muscles-grossly intact NEUROLOGICAL: Cranial nerves grossly intact; no facial asymmetry, power and sensation grossly intact. LYMPHATICS: No lymph nodes palpable in the axilla and neck INVESTIGATIONS, reviewed in the clinical context: May 06: White count 5.1 hemoglobin 12.8 platelets 270 sodium 137 potassium 2.4 bicarb 18 BUN 16 creatinine 1.32 Troponin I less than 0.012 EKG tracing personally reviewed by me-normal sinus rhythm. Prolonged QT. Assessment plan: -Severe persistent hypokalemia, chronic. Patient has extensive workup in the past. By Dr. Banks. Replace potassium -Sinus bradycardia. Could be physiological. Patient is a runner and does several times a week. Long-term. Will rule out other causes. Cardiology consulted. Telemetry. -Chronic kidney disease, stage III. Cause unknown. Follows with Dr. Banks outpatient -Metabolic acidosis secondary to chronic kidney disease Add sodium bicarbonate -Hypoalbuminemia. Secondary to CKD -Prolonged QT interval likely from hypokalemia. Telemetry -Full code Replace potassium. Telemetry. Cardiology consulted. Past Medical History Additional Past Medical History / Comment(s): hemoolytic anemia, low k+ History of Any Multi-Drug Resistant Organisms: None Reported Additional Past Surgical History / Comment(s): D&C, gallbladder, ablasion Past Psychological History: Unable to Obtain Smoking Status: Never smoker Past Alcohol Use History: Occasional Past Drug Use History: None Reported Medications and Allergies Home Medications Medication Instructions Recorded Confirmed Type Famotidine [Pepcid] 20 mg PO DAILY tab 05/06/24 Rx Potassium Bicarbonate/Cit AC 25 meq PO DAILY 05/06/24 05/06/24 History [Klor-Con-Ef 25 Meq Tab Eff] Potassium Chloride ER [K-Dur 20] 40 meq PO QID 05/06/24 05/06/24 History Allergies Allergy/AdvReac Type Severity Reaction Status Date / Time No Known Allergies Allergy Verified 05/06/24 10:29 Physical Exam Vitals: Vital Signs Temp Pulse Pulse Resp BP Pulse Ox 05/06/24 08:18 46 L 05/06/24 08:16 97.7 F 46 L 14 100/62 99 05/06/24 06:45 46 L 16 93/56 99 05/06/24 03:38 48 L 18 100/63 100 05/06/24 00:07 55 L 05/05/24 23:53 98.1 F 54 L 18 107/64 98 Intake and Output 05/05/24 05/06/24 05/06/24 22:59 06:59 14:59 Other: Weight 56.699 kg Results CBC & Chem 7: 05/06/24 01:36 05/06/24 01:36 Labs: Abnormal Lab Results - Last 24 Hours (Table) 05/06/24 Range/Units 01:36 Potassium 2.4 L* (3.5-5.1) mmol/L Chloride 113 H (98-107) mmol/L Carbon Dioxide 18 L (22-30) mmol/L Creatinine 1.32 H (0.52-1.04) mg/dL Calcium 7.5 L (8.4-10.2) mg/dL Total Protein 5.1 L (6.3-8.2) g/dL Albumin 3.1 L (3.5-5.0) g/dL
[2024-05-06 16:44] VITALS: BP 105/68; PULSE 56
--- NOTE | 2024-05-06 22:15 | P.DS ---
Providers Date of admission: 05/06/24 03:38 Expected date of discharge: 05/06/24 Attending physician: Rodrigo Barillas Consults: 05/06/24 03:33 Consult Physician Routine Consulting Provider: Anurag De Jesus Consult Reason/Comments: Symptomatic bradycardia Do you want consulting provider notified?: Yes Primary care physician: [facility] Course: Chief Complaint: Low heart rate This is a pleasant 49-year-old patient follows Dr. Mcleod. long-standing history of hemolytic anemia that was followed with Dr. Godwin. Dietary Clerk. No cause was determined. - in remission. follows up biannually. Hypokalemia for many years. Has extensive workup done in the past. No cause was found. Radio Station Engineer Dr. Banks. Normally her potassium runs around 2.4. She sometimes gets potassium infusions. Yesterday she went for a potassium infusion. Got 80 mEq. When I was about to leave heart rate dropped to around 28-30. Also was noted to have bigeminy. She was moved here. Otherwise patient rather active. She jogs few miles few times a week. Does drink a lot of water. She sometimes does get tired. Patient's at the bedside in the ER. Had a lengthy discussion with the patient and at the bedside. At the most patient's potassium states that 2.4. The following discussion was had in terms of further plan. -Patient have a event monitor and follow-up with Dr. De Jesus outpatient -Patient will increase the oral intake of liquid potassium -Patient cut back a bit water intake. Entered to supplement with juices Hindy example orange juice etc. Follow-up with nephrology and cardiology Patient bradycardia may be physiological because she is very active Past medical history to include: Hemolytic anemia, cause unknown. Persistent hypokalemia. Social history: No smoking. Alcohol occasionally. . Does special ed Physical examination: VITAL SIGNS: 97.7, 56, 16, 105 x 68, 99% room air GENERAL: BMI 20.2, reclining bed, awake, comfortable EYES: Pupils equal. Conjunctiva normal. HEENT: External appearance of nose and ears normal, oral cavity grossly normal. NECK: JVD not raised; masses not palpable. HEART: First and second heart sounds are normal; no edema. LUNGS: Respiratory rate normal; clear to auscultation. ABDOMEN: Soft, nontender, liver spleen not palpable, no masses palpable. PSYCH: Alert and oriented x3; mood and affect normal. MUSCULOSKELETAL:No Clubbing/cyanosis;muscles-grossly intact NEUROLOGICAL: Cranial nerves grossly intact; no facial asymmetry, power and sensation grossly intact. LYMPHATICS: No lymph nodes palpable in the axilla and neck INVESTIGATIONS, reviewed in the clinical context: May 06: White count 5.1 hemoglobin 12.8 platelets 270 sodium 137 potassium 2.4 bicarb 18 BUN 16 creatinine 1.32 Troponin I less than 0.012 EKG tracing personally reviewed by me-normal sinus rhythm. Prolonged QT. Assessment plan: -Severe persistent hypokalemia, chronic. Patient has extensive workup in the past. By Dr. Banks. Replace potassium -Sinus bradycardia. Could be physiological. Patient is a runner and does several times a week. Long-term. By Dr. De Jesus from cardiology. Follow-up outpatient with event monitor given. -Chronic kidney disease, stage III. Cause unknown. Follows with Dr. Banks outpatient -Metabolic acidosis secondary to chronic kidney disease Add sodium bicarbonate -Hypoalbuminemia. Secondary to CKD -Prolonged QT interval likely from hypokalemia. Telemetry -Full code Disposition: Home Past Medical History Additional Past Medical History / Comment(s): hemoolytic anemia, low k+ History of Any Multi-Drug Resistant Organisms: None Reported Additional Past Surgical History / Comment(s): D&C, gallbladder, ablasion Past Psychological History: Unable to Obtain Smoking Status: Never smoker Past Alcohol Use History: Occasional Past Drug Use History: None Reported Plan - Discharge Summary New Discharge Prescriptions: New Famotidine [Pepcid] 20 mg PO DAILY tab Sodium Bicarbonate Tab 325 mg PO BID #60 tablet Continue Potassium Chloride ER [K-Dur 20] 40 meq PO QID Potassium Bicarbonate/Cit AC [Klor-Con-Ef 25 Meq Tab Eff] 25 meq PO DAILY Discharge Medication List Famotidine [Pepcid] 20 mg PO DAILY tab 05/06/24 [Rx] Potassium Bicarbonate/Cit AC [Klor-Con-Ef 25 Meq Tab Eff] 25 meq PO DAILY 05/06/24 [History] Potassium Chloride ER [K-Dur 20] 40 meq PO QID 05/06/24 [History] Sodium Bicarbonate Tab 325 mg PO BID #60 tablet 05/06/24 [Rx] Follow up Appointment(s)/Referral(s): Anurag De Jesus MD [Medical Doctor] - 1 Week Morena Banks MD [STAFF PHYSICIAN] - 1 Week Maximilian Mcleod MD [Primary Care Provider] - 1-2 days Activity/Diet/Wound Care/Special Instructions: event monitor Discharge Disposition: HOME SELF-CARE
[2024-05-07] MEDS ORDERED: FAMOTIDINE 20 MG TAB PO SCH (09:00)
== END 2024-05-06 17:24 | disposition home or self-care (01) ==
LOC: EC 23:44 → 3SCARD 05-06 03:38
PROVIDERS: ADMIT Hospitalist; ATTEND Hospitalist
DX: E87.6 Hypokalemia (principal); I45.81 Long QT syndrome; I45.10 Unspecified right bundle-branch block; N18.30 Chronic kidney disease, stage 3 unspecified; E87.20 Acidosis, unspecified; R00.8 Other abnormalities of heart beat; R00.1 Bradycardia, unspecified; D59.9 Acquired hemolytic anemia, unspecified; E88.09 Other disorders of plasma-protein metabolism, not elsewhere classified; Z79.899 Other long term (current) drug therapy
CPT/HCPCS: 96365; 96372; 99285; 36415; 93005; 93270; 80053; 83735; 84484; 85025; 85610; 85730; G0378; J1650; J3475